=== PATIENT | male | born 1995 | race African-American/Black ===

== ENCOUNTER 2019-07-16 16:29 | Emergency (ER) | payer SELFPAY ==
[2019-07-16] MEDS ORDERED: Lidocaine 1% w/Epinephrine 1:100K 20 ML VIAL ONE (16:51)
[2019-07-16] MEDS ORDERED: Adacel (T-DAP) 0.5 ML SYRINGE ONE (16:55)
--- NOTE | 2019-07-16 17:11 | RAD ---
XR Hand Rt 3 View STANDARD: 07/16/2019 4:53 PM CLINICAL INDICATION: History of right hand laceration on glass COMPARISON: None. TECHNIQUE: 3 views. Laterality: Right hand. FINDINGS: Bones: There is a nondisplaced ulnar styloid process fracture. Joints: Joint spaces are preserved.. Soft Tissue: No radiopaque foreign body is demonstrated.. IMPRESSION: Nondisplaced ulnar styloid process fracture. No radiopaque foreign body demonstrated..
[2019-07-16] MEDS ORDERED: Triple Antibiotic Oint 1 GM Packet ONE (18:47)
== END 2019-07-16 19:21 | disposition home or self-care (01) ==
LOC: ERS 16:29
DX: S52.614A Nondisplaced fracture of right ulna styloid process, initial encounter for closed fracture (principal); S61.511A Laceration without foreign body of right wrist, initial encounter; S61.411A Laceration without foreign body of right hand, initial encounter; S61.212A Laceration without foreign body of right middle finger without damage to nail, initial encounter; F17.210 Nicotine dependence, cigarettes, uncomplicated; Z23 Encounter for immunization; W25.XXXA Contact with sharp glass, initial encounter
CPT/HCPCS: 12005; 29125; 90471; 90715; J2001